=== PATIENT | female | born 1975 | race Caucasian/White ===

== ENCOUNTER → 2025-05-13 | Outpatient (CLI) | payer OTHER ==
[~2025-05-13] MED LIST: ESCI10 PO; NAPR500EC PO; OTEZLA30 MG PO
== END ==
LOC: LAB SHORT 11:52 → LAB 11:52
PROVIDERS: Obstetrics & Gynecology
DX: Z01.419 Encounter for gynecological examination (general) (routine) without abnormal findings (principal)
CPT/HCPCS: 87624; G0145

== ENCOUNTER 2025-06-19 10:20 | Day surgery (SDC) | payer OTHER ==
[~2025-06-19] VITALS: Ht 157.5 cm; Wt 176.4 kg
[~2025-06-19 10:20] MED LIST changes: +Bupivacaine 0.5% W/EPI 1:200000 SDV 30 ML Vial ONE; +HUMIRA PEN40 MG/0.2 SQ
[2025-06-19] MEDS ORDERED: Phentermine HCl30 MG (10:39)
--- NOTE | 2025-06-19 10:49 | NUR ---
06/19/25 Ann Marie9 DINA MAHONEY NO HAIR CLIPPING NEEDED
[2025-06-19] MEDS ORDERED: CeFAZolin Sodium 2,000 MG VIAL ONE (11:08)
[2025-06-19] MEDS ORDERED: FentaNYL Citrate 50 MCG/ML 2 ML Injection ONE (11:16)
[2025-06-19] MEDS ORDERED: Midazolam HCl 1MG / ML 2ML Vial ONE (12:01)
[2025-06-19] MEDS ORDERED: Ondansetron HCl 2 MG / ML 2ML Vial ONE (12:31)
[2025-06-19 13:33] VITALS: BP 128/84
--- NOTE | 2025-06-19 13:37 | NUR ---
06/19/25 4627 Aura Vera PT UP TO CHAIR, AT SIDE OF RECLINER. PT DENIES ANY NAUSEA. PT ABLE TO TOLERATE FLUIDS WELL. PT FOLLOWED TRANSFER STATUS, PER DOCTOR'S ORDERS. PT PLEASANT AND COOPERATIVE WITH CARE PROVIDED. PT A&O x4. PT EDUCATION PROVIDED, ALL QUESTIONS ANSWERED AND CONCERNS ADDRESSED.
[2025-06-19] MEDS ORDERED: HYDROcodone 5-APAP 325 TAB ONE (13:42)
== END 2025-06-19 13:55 | disposition home or self-care (01) ==
LOC: ORSCSDS 10:20
PROVIDERS: Podiatrist Foot & Ankle Surgery
PROC: 0SGL04Z Fusion of Left Tarsometatarsal Joint with Internal Fixation Device, Open Approach (ICD-10-PCS; principal; 2025-06-19 11:45)
DX: M21.612 Bunion of left foot (principal); L40.50 Arthropathic psoriasis, unspecified; Z79.899 Other long term (current) drug therapy
CPT/HCPCS: A6253; A9270; C1713; J0690; J2250; J2405; J2704; J3010; J7120